=== PATIENT | female | born 1955 | race Caucasian/White ===

== ENCOUNTER → 2017-10-21 | Outpatient (CLI) | payer BC | LOC: BMCIMAGING 15:23 | PROVIDERS: ATTEND Family Medicine | DX: Z12.31 Encounter for screening mammogram for malignant neoplasm of breast (principal) | CPT/HCPCS: G0202 ==

== ENCOUNTER → 2018-11-21 | Outpatient (CLI) | payer BC, OTHER | LOC: BMCIMAGING 12:26 | PROVIDERS: ATTEND Family Medicine | DX: Z12.31 Encounter for screening mammogram for malignant neoplasm of breast (principal) ==

== ENCOUNTER → 2019-03-20 | Outpatient (CLI) | payer BC | LOC: FIMAGING 14:39 | PROVIDERS: ATTEND Family Medicine | DX: M25.511 Pain in right shoulder (principal); M11.211 Other chondrocalcinosis, right shoulder ==